=== PATIENT | male | born 1950 | race Caucasian/White ===

== ENCOUNTER 2022-01-30 14:34 | Emergency (ER) | payer MEDICARE, SELFPAY ==
[2022-01-30 14:40] VITALS: BP 156/75; PULSE 60; RESP 20; TEMP 36.4; O2SAT 95; BMI 41.4
--- NOTE | 2022-01-30 15:30 | ED_ITS ---
HPI - General Adult General Date Seen: 01/30/22 Chief complaint: Back Injury/Pain Stated complaint: Low back pain Time Seen by Provider: 01/30/22 14:45 Source: patient History of Present Illness [facility] narrative: Patient is a 71-year-old male here with pain in his right low back. He tells me has a year's long history of problems with his back, and recently underwent a radiofrequency treatment 2 and half weeks ago. He has had the same treatment a year ago and says he got 13 months of relief out of it. It apparently can cause a flare of symptoms, but last time he had it he does not remember having anything like he is having now. For the past few days he says he has had a severe flare of his chronic symptoms in the right low back. He does not have significant radicular symptoms. He says he has had imaging of his spine and aside from some degenerative changes in the discs does not have any abnormalities. He is managed chronically he says on naproxen, in the past he says he has had muscle relaxers and I note in his chart he has also been managed on narcotics although he did not mention those. He says he was here once 10 years ago and was given a shot of something that relieved his pain, although he did not remember what that was. Review of his records showed visit in 2005 in which he was given 60 mg of Toradol IM along with 75 mg of Vistaril IM. That is the only visit I see in which he was given an IM medication for back pain. He denies any recent trauma, has not had fevers, urinary symptoms, or anything else unusual. He says he is just having trouble getting around, and difficulty sleeping secondary to pain. Otherwise feels that this is identical to the pain that he has had for many years. He also mentions that he has long COVID. Denies other significant history, says he just had a physical in aside from mildly high cholesterol denies other medical problems. He does say that he is scheduled to have ankle surgery on February 11, and wants to get his back under better control before then as he does not think he would be able to use crutches right now. His primary doctor is Dr. Palm at [facility]. Related Data Home Medications Medication Instructions Recorded Confirmed amlodipine 10 mg tablet 10 mg PO DAILY 01/30/22 01/30/22 irbesartan 300 mg tablet 300 mg PO DAILY 01/30/22 01/30/22 omeprazole 40 mg capsule,delayed 40 mg PO DAILY 01/30/22 01/30/22 release Allergies Allergy/AdvReac Type Severity Reaction Status Date / Time No Known Drug Allergies Allergy Verified 01/30/22 14:45 Review of Systems Status of ROS: Reports: 10 or more systems reviewed and unremarkable except as noted in History and below [facility] Social History Smoking Status: Former smoker What tobacco products do you use: cigarettes Smoking quit date/years: >15 years ago Do you use any of these nicotine containing products: None Second hand tobacco smoke exposure: No How often do you have a drink containing alcohol: never AUDIT-C Alcohol total score: 0 Non-prescribed substance use: denies use Exam Narrative: Exam Narrative: Vital signs as noted above. In general, an alert, nontoxic male. Looks comfortable sitting in bed. Head: Normocephalic, atraumatic. Eyes: Pupils are equal reactive. Extraocular movements are full. Conjunctivae are normal. ENT: Mucous membranes are moist. Throat is normal. Neck: Supple without lymphadenopathy. Heart: Regular rate and rhythm. No murmur or rub. Lungs: Clear bilaterally. No increased work of breathing, crackles or wheezes. Abdomen: Soft and nontender. No organomegaly. Back: Nontender to palpation. No rashes seen. Able to sit up in the bed with minimal difficulty. Extremities: Well perfused. No edema. No calf tenderness. Pulses intact. Neurologic: Patient is alert and oriented to person and place. Speech is fluent. Face is symmetric. Moves all extremities equally. Strength 5/5 in bilateral lower extremities. Affect: Normal. Skin: Warm and dry. Well perfused. Const: Vital Signs, click to edit/add: Vital Signs - 24 hr 01/30/22 14:40 Temperature 97.6 F Pulse Rate [Right Pulse Oximeter] 60 Respiratory Rate 20 Blood Pressure [Ri ght Upper Arm] 156/75 H Pulse Oximetry 95 Oxygen Delivery Me thod Room Air Documenting provider has reviewed patient's vital signs: yes Course Course Hospital Course: I reviewed his records as mentioned above, did see the visit where he had Toradol, so I think we will go ahead and try that. I am going to put him on a few days of steroid, to see if that helps with any inflammation from his radiofrequency treatment. Will also try muscle relaxer. Particularly given his upcoming surgery, would like to avoid narcotics. This does appear to be an exacerbation of his underlying chronic pain, he does not have any new or concerning red flag symptoms, I do not think imaging is needed today or other workup for medical problem such as kidney stone, pyelonephritis, diverticulitis, colitis, etcetera. Recommended to him that if he is not having any relief with plan, to talk to his doctor on Tuesday for further recommendations. In the meantime, if he has acute changes, new symptoms or severe pain, return to the emergency department. Vital Signs Vital signs: Initial Vital Signs Temperature 97.6 F 01/30/22 14:40 Temperature Source Temporal Artery Scan 01/30/22 14:40 Pulse Rate 60 01/30/22 14:40 Respiratory Rate 20 01/30/22 14:40 Blood Pressure 156/75 H 01/30/22 14:40 Blood Pressure Mean 102 01/30/22 14:40 Blood Pressure Position Sitting 01/30/22 14:40 Pulse Oximetry 95 01/30/22 14:40 Oxygen Delivery Method 01/30/22 14:40 Vital Signs Temperature 97.6 F 01/30/22 14:40 Pulse Rate 60 01/30/22 14:40 Respiratory Rate 20 01/30/22 14:40 Blood Pressure 156/75 H 01/30/22 14:40 Pulse Oximetry 95 01/30/22 14:40 Oxygen Delivery Method 01/30/22 14:40 Temperature 97.6 F 01/30/22 14:40 Pulse Rate 60 01/30/22 14:40 Respiratory Rate 20 01/30/22 14:40 Blood Pressure 156/75 H 01/30/22 14:40 Pulse Oximetry 95 01/30/22 14:40 Oxygen Delivery Method 01/30/22 14:40 Discharge Plan Discharge Clinical Impression: Chronic back pain Patient Disposition: Home, Self-Care Condition: Stable Instructions: Chronic Back Pain (DC) Additional Instructions: Continue your naproxen, add prednisone and muscle relaxer as discussed. If no improvement over the next day or 2, discuss with your primary doctor. Prescriptions: No Action amlodipine 10 mg tablet 10 mg PO DAILY Label Comments: TAKE 1 TABLET BY MOUTH ONCE DAILY irbesartan 300 mg tablet 300 mg PO DAILY omeprazole 40 mg capsule,delayed release(DR/EC) 40 mg PO DAILY Label Comments: TAKE 1 CAPSULE BY MOUTH ONCE DAILY Stand Alone Forms: [employer] Info Instructions
[2022-01-30] MEDS: KETOROLAC 30 MG/ML inj 60 MG IM (15:49)
[2022-01-30] MEDS: predniSONE 20 MG TABLET 60 MG PO (15:49)
== END 2022-01-30 16:10 | disposition home or self-care (01) ==
LOC: ED 15:50
PROVIDERS: Emergency Provider Emergency Medicine; PCP Family Medicine
DX: M54.50 Low back pain, unspecified (principal)
CPT/HCPCS: 96372; 99283; 99284; J1885; J7512

== ENCOUNTER 2022-03-21 13:05 | Emergency (ER) | payer MEDICARE, SELFPAY ==
[2022-03-21 13:19] VITALS: BP 160/84; PULSE 97; RESP 24; TEMP 36.8; O2SAT 97; BMI 42.3
--- NOTE | 2022-03-21 13:19 | ED_ITS ---
HPI - General Adult General Date Seen: 03/21/22 Chief complaint: Back Injury/Pain Stated complaint: Back Pain Time Seen by Provider: 03/21/22 13:07 Source: patient History of Present Illness HPI narrative: Patient is a 71-year-old male here with pain in his right low back.? He does not have significant radicular symptoms.? He says he has had imaging of his spine and aside from some degenerative changes in the discs does not have any ab normalities.? He is managed chronically he says on naproxen. I saw him at the end of January for the same symptoms, at which time he had a shot of Toradol was discharged with prednisone and muscle relaxers and improved. He had surgery on his left foot on February 11, says he is recovering reasonably well but is still nonweightbearing, using a scooter. Yesterday, his right back pain flared again, he did not have any specific trauma. Does not have radicular symptoms. He denies any recent trauma, has not had fevers, urinary symptoms, or anything else unusual.?Feels that this is identical to the pain that he has had for many years.? Did take the hydrocodone which he has for his foot last night, feels he needs additional pain management. ? Related Data Home Medications Medication Instructions Recorded Confirmed amlodipine 10 mg tablet 10 mg PO DAILY 01/30/22 01/30/22 irbesartan 300 mg tablet 300 mg PO DAILY 01/30/22 01/30/22 omeprazole 40 mg capsule,delayed 40 mg PO DAILY 01/30/22 01/30/22 release Allergies Allergy/AdvReac Type Severity Reaction Status Date / Time No Known Drug Allergies Allergy Verified 01/30/22 14:45 Review of Systems Status of ROS: Reports: 10 or more systems reviewed and unremarkable except as noted in History and below [facility] Social History Smoking Status: Former smoker What tobacco products do you use: cigarettes Smoking quit date/years: >15 years ago Do you use any of these nicotine containing products: None Second hand tobacco smoke exposure: No How often do you have a drink containing alcohol: never AUDIT-C Alcohol total score: 0 Non-prescribed substance use: denies use Exam Narrative: Exam Narrative: Vital signs as noted above. In general, an alert, well-appearing patient. Head: Normocephalic, atraumatic. Eyes: Pupils are equal reactive. Extraocular movements are full. Conjunctivae are normal. ENT: Mucous membranes are moist. Throat is normal. Neck: Supple without lymphadenopathy. Heart: Regular rate and rhythm. No murmur or rub. Lungs: Clear bilaterally. No increased work of breathing, crackles or wheezes. Back: Nontender to palpation aside from some tenderness in the paraspinous muscles in the lumbar region on the right. Extremities: Left foot is in a boot. Neurologic: Patient is alert and oriented to person and place. Speech is fluent. Face is symmetric. Moves all extremities equally. Did not assess distal lower extremity strength secondary to foot surgery. Affect: Normal. Skin: Warm and dry. Well perfused. Const: Vital Signs, click to edit/add: Vital Signs - 24 hr 03/21/22 13:19 Temperature 98.3 F Pulse Rate [Right Pulse Oximeter] 97 Respiratory Rate 24 Blood Pressure [Ri ght Upper Arm] 160/84 H Pulse Oximetry 97 Oxygen Delivery Me thod Room Air Documenting provider has reviewed patient's vital signs: yes Course Course Hospital Course: Since he did well with our therapy last time, we will repeat the shot of Toradol here, prescribed prednisone and Flexeril for home. He does have the hydrocodone which he can use if needed. Otherwise, naproxen. Primary care follow-up if not improving within the expected timeframe. Return for acute worsening. He does not have any red flags today, I do not think imaging is necessary. Return for acute worsening or new symptoms such as radicular pain, weakness, numbness, fevers etc. Vital Signs Vital signs: Initial Vital Signs Temperature 98.3 F 03/21/22 13:19 Temperature Source Temporal Artery Scan 03/21/22 13:19 Pulse Rate 97 03/21/22 13:19 Respiratory Rate 24 03/21/22 13:19 Blood Pressure 160/84 H 03/21/22 13:19 Blood Pressure Mean 109 03/21/22 13:19 Blood Pressure Position Sitting 03/21/22 13:19 Pulse Oximetry 97 03/21/22 13:19 Oxygen Delivery Method 03/21/22 13:19 Vital Signs Temperature 98.3 F 03/21/22 13:19 Pulse Rate 97 03/21/22 13:19 Respiratory Rate 24 03/21/22 13:19 Blood Pressure 160/84 H 03/21/22 13:19 Pulse Oximetry 97 03/21/22 13:19 Oxygen Delivery Method 03/21/22 13:19 Temperature 98.3 F 03/21/22 13:19 Pulse Rate 97 03/21/22 13:19 Respiratory Rate 24 03/21/22 13:19 Blood Pressure 160/84 H 03/21/22 13:19 Pulse Oximetry 97 03/21/22 13:19 Oxygen Delivery Method 03/21/22 13:19 Discharge Plan Discharge Clinical Impression: Chronic low back pain Patient Disposition: Home, Self-Care Condition: Stable Instructions: Chronic Back Pain (DC) Additional Instructions: Prednisone as prescribed. Muscle relaxer as needed. Follow-up as needed if not improving as expected. Return if you are worsening rather than improving. Prescriptions: No Action amlodipine 10 mg tablet 10 mg PO DAILY Label Comments: TAKE 1 TABLET BY MOUTH ONCE DAILY irbesartan 300 mg tablet 300 mg PO DAILY omeprazole 40 mg capsule,delayed release(DR/EC) 40 mg PO DAILY Label Comments: TAKE 1 CAPSULE BY MOUTH ONCE DAILY Follow Up/Referrals: Daniel Palm MD [Primary Care Provider] - Stand Alone Forms: [employer] Info Instructions
[2022-03-21] MEDS: KETOROLAC 30 MG/ML inj IM (13:43)
== END 2022-03-21 14:29 | disposition home or self-care (01) ==
LOC: ED 14:09
PROVIDERS: Emergency Provider Emergency Medicine; PCP Family Medicine
DX: M54.50 Low back pain, unspecified (principal)
CPT/HCPCS: 96372; 99283; 99284; J1885

== ENCOUNTER 2022-08-17 10:30 | Outpatient (RCR) | payer MEDICARE, SELFPAY | END 2022-11-25 23:59 | disposition home or self-care (01) | PROVIDERS: PCP Family Medicine; Visit Provider Orthopaedic Surgery Foot and Ankle Surgery | DX: Z47.89 Encounter for other orthopedic aftercare (principal); Z98.890 Other specified postprocedural states; Z51.89 Encounter for other specified aftercare | CPT/HCPCS: 97110; 97140; 97161 ==

== ENCOUNTER 2024-03-07 10:30 | Outpatient (RCR) | payer MEDICARE, SELFPAY | END 2024-07-05 23:59 | disposition home or self-care (01) | PROVIDERS: PCP Family Medicine; Visit Provider Physician Assistant | DX: M43.16 Spondylolisthesis, lumbar region (principal); M48.062 Spinal stenosis, lumbar region with neurogenic claudication; M54.50 Low back pain, unspecified; Z51.89 Encounter for other specified aftercare | CPT/HCPCS: 97110; 97161 ==